=== PATIENT | female | born 1935 | race Caucasian/White ===

== ENCOUNTER 2017-04-18 23:33 | Inpatient (IN) | payer MEDICARE ==
[~2017-04-18] VITALS: Ht 162.6 cm; Wt 78.9 kg
[2017-04-19] MEDS ORDERED: OXYcodone/APAP 10/325MG TABLET PO ONE
[2017-04-19] MEDS ORDERED: BUPIVACAINE/PF 0.5% INFIL ONE
[2017-04-19] MEDS ORDERED: OXYcodone/APAP 10/325MG TABLET ONE (00:23)
[2017-04-19] MEDS ORDERED: BUPIVACAINE 0.25% ONE (00:23)
[2017-04-19] MEDS ORDERED: L.E.T SOLUTION TP ONE ×4 (00:24→01:59)
[2017-04-19] MEDS ORDERED: DIPH,PERTUSS(ACELL),TET VAC/PF 0.5 ML IM-VACC ONE ×2 (00:24)
[2017-04-19] MEDS ORDERED: PLEASE ENTER ALLERGIES MC SCH ×2 (00:30)
[2017-04-19] MEDS ORDERED: DIAZEPAM 5 MG TABLET ONE (01:58)
[2017-04-19] MEDS ORDERED: DIAZEPAM 5 MG TABLET PO ONE (02:00)
[2017-04-19] MEDS ORDERED: HYDROmorphone 1 MG/ML, 1ML IM ONE (02:30)
[2017-04-19] MEDS ORDERED: HYDROmorphone 1 MG/ML, 1ML ONE ×3 (02:59→20:49)
[2017-04-19] MEDS ORDERED: morphine SULFATE 10 MG/ML, 1ML ONE (04:21)
[2017-04-19] MEDS ORDERED: ONDANSETRON 2MG/ML, 2ML ONE (04:22)
[2017-04-19] MEDS ORDERED: hydrALAzine 20 MG/ML, 1ML IVPush PRN (04:30)
[2017-04-19] MEDS ORDERED: morphine SULFATE 10 MG/ML, 1ML IVPush ONE (04:30)
[2017-04-19] MEDS ORDERED: DIAZEPAM 5 MG/ML, 2ML IV PRN (04:30)
[2017-04-19] MEDS ORDERED: ONDANSETRON 2MG/ML, 2ML IVPush ONE (04:30)
[2017-04-19] MEDS ORDERED: ACETAMINOPHEN 325 MG TABLET PO PRN (04:30)
[2017-04-19] MEDS ORDERED: ONDANSETRON 2MG/ML, 2ML IVPush PRN (04:30)
[2017-04-19] MEDS ORDERED: PRED5TAB PO (04:31)
[2017-04-19] MEDS ORDERED: ATOR20TA9 PO (04:32)
[2017-04-19] MEDS: HYDROmorphone 2 MG/ML, 1ML IVPush PRN ×3 (06:27→20:54)
[2017-04-19 06:35] VITALS: BP 137/71
[2017-04-19 06:41] VITALS: BP 137/71
[2017-04-19] MEDS: SODIUM CHLORIDE FLUSH 10ML SYR IVF SCH ×2 (09:00→20:54)
[2017-04-19 12:56] VITALS: BP 114/59
[2017-04-19 19:09] VITALS: BP 120/75
[2017-04-19] MEDS ORDERED: ATORVASTATIN 20 MG TABLET PO SCH (21:00)
[2017-04-20 04:48] LABS: HEMATOCRIT 36.6 % (34.6-47.8); HEMOGLOBIN 12.3 g/dL (11.7-16.4); WHITE BLOOD COUNT 6.2 x10^3/uL (3.4-10)
[2017-04-20 04:57] LABS: BLOOD UREA NITROGEN 19 mg/dL (7-18)
[2017-04-20 07:38] VITALS: BP 130/74
[2017-04-20] MEDS: HYDROmorphone 2 MG/ML, 1ML IVPush PRN (09:35)
[2017-04-20] MEDS: SODIUM CHLORIDE FLUSH 10ML SYR IVF SCH (10:17)
[2017-04-20 13:57] VITALS: BP 128/76
[2017-04-20] MEDS ORDERED: OXYcodone/APAP 5/325MG TABLET PO PRN (14:00)
[2017-04-20] MEDS ORDERED: OXYC1TAB7 PO (15:13)
== END 2017-04-20 16:49 | disposition home or self-care (01) | DRG 581 ==
LOC: ED 04-19 01:11 → EDIP 04-19 05:26 → 3NE 04-19 05:59 → DCLOUNGE 04-20 16:45
PROVIDERS: ADMIT Internal Medicine; ATTEND Internal Medicine
PROC: 0JQ10ZZ Repair Face Subcutaneous Tissue and Fascia, Open Approach (ICD-10-PCS; principal; 2017-04-19)
PROC: 0JQJ0ZZ Repair Right Hand Subcutaneous Tissue and Fascia, Open Approach (ICD-10-PCS; 2017-04-19)
DX: S01.81XA Laceration without foreign body of other part of head, initial encounter (principal); E78.5 Hyperlipidemia, unspecified; S00.83XA Contusion of other part of head, initial encounter; M35.3 Polymyalgia rheumatica; J45.909 Unspecified asthma, uncomplicated; W18.30XA Fall on same level, unspecified, initial encounter; Z96.643 Presence of artificial hip joint, bilateral; Z79.82 Long term (current) use of aspirin; Z87.891 Personal history of nicotine dependence; Y93.89 Activity, other specified; Y92.89 Other specified places as the place of occurrence of the external cause; Y99.8 Other external cause status; S61.011A Laceration without foreign body of right thumb without damage to nail, initial encounter
CPT/HCPCS: 12004; 13132; 36415; 70450; 72110; 72125; 72190; 80048; 85025; 90471; 90715; 96372; 96374; 96375; J1170; J2405; J2270; J7512